=== PATIENT | male | born 1945 | race African-American/Black ===

== ENCOUNTER 2017-12-15 15:07 | Inpatient (IN) ==
[2017-12-15] MEDS ORDERED: ALBUTEROL/IPRATROPIUM 3 ML NEB RESP TX STA (16:36)
[2017-12-15] MEDS ORDERED: AZITHROMYCIN 250 MG TABLET PO STA (17:15)
[2017-12-15] MEDS ORDERED: cefTRIAXone 2,000 MG in SODIUM CHLORIDE 0.9% 100 ML IV STA (17:15)
[2017-12-15 17:17] LABS: Basophils % 0.2 % (0.0-0.8); Eosinophils # 0.2 10*3/uL (0.0-0.87); Eosinophils % 2.8 % (0.00-10.9); Hematocrit 41.2 VOL% (42.0-52.0); Hemoglobin 13.5 GM/DL (14.0-18.0); Immature Granulocytes % 0.4 %; Immature Granulocytes Absolute 0.02 #; Lymphocytes # 1.3 10*3/uL (1.4-4.0); Lymphocytes % 23.1 % (21.2-54.2); Mean Corpuscular HGB Conc 32.8 GM/DL (32-36); Mean Corpuscular Hemoglobin 29 PG (27-34); Mean Corpuscular Volume 88.8 FL (87-102); Mean Platelet Volume 11.3 FL (9.6-12.0); Monocytes # 0.9 10*3/uL (0.11-0.8); Monocytes % 15.2 % (1.7-12.7); Neutrophils # 3.3 10*3/uL (1.4-7.4); Neutrophils % 58.3 % (38.7-73.9); Platelet Count 141 T/CUMM (130-400); Red Blood Count 4.64 MC/CUMM (3.8-5.5); Red Cell Distribution Width 14.6 % (9.3-17.3); White Blood Count 5.7 T/CUMM (4-12)
[2017-12-15 17:36] LABS: Albumin 3.8 G/DL (3.4-5.0); Bilirubin,Total 0.7 MG/DL (0.2-1.0); Calcium 9.1 MG/DL (8.5-10.1); Lactic Acid 0.6 MMOL/L (0.4-2.0); Osmolality,Calculated 280.3 MOS/KG (273-304); Total Protein 7.8 G/DL (6.4-8.3)
[2017-12-15] MEDS ORDERED: AZITHROMYCIN 250 MG TABLET ONE (17:54)
[2017-12-15] MEDS ORDERED: cefTRIAXone 1,000 MG VIAL ONE (17:54)
[2017-12-15] MEDS ORDERED: OSELTAMIVIR 75 MG CAPSULE PO STA (18:55)
[2017-12-15] MEDS ORDERED: OSELTAMIVIR 75 MG CAPSULE ONE (18:58)
[2017-12-15] MEDS ORDERED: ALBUTEROL 2.5 MG/3 ML NEB RESP TX PRN (19:35)
[2017-12-15] MEDS ORDERED: ONDANSETRON 4 MG/2 ML VIAL IV PRN (19:47)
[2017-12-15] MEDS ORDERED: SODIUM CHLORIDE 0.9% 1,000 ML IV SCH (20:00)
[2017-12-15] MEDS ORDERED: hydrALAZINE 20 MG/1 ML VIAL IV PRN (20:02)
[2017-12-15] MEDS ORDERED: OSELTAMIVIR 75 MG CAPSULE PO SCH (21:00)
[2017-12-15] MEDS: DILTIAZEM 90 MG TABLET PO SCH (22:18)
[2017-12-15] MEDS: ENOXAPARIN 40 MG/0.4 ML SYRINGE SUBCUT SCH (22:18)
[2017-12-16] MEDS: ALBUTEROL/IPRATROPIUM 3 ML NEB RESP TX SCH ×4 (00:13→19:58)
[2017-12-16] MEDS: ACETAMINOPHEN 325 MG TABLET PO PRN ×2 (01:05→11:24)
[2017-12-16] MEDS ORDERED: KETOROLAC 15 MG/1 ML VIAL IV ONE (03:25)
[2017-12-16] MEDS ORDERED: KETOROLAC 30 MG/1 ML VIAL ONE (03:26)
[2017-12-16] MEDS ORDERED: FUROSEMIDE 40 MG/4 ML VIAL IM ONE (03:32)
[2017-12-16] MEDS ORDERED: FUROSEMIDE 40 MG/4 ML VIAL ONE (03:32)
[2017-12-16] MEDS ORDERED: FUROSEMIDE 40 MG/4 ML VIAL IV ONE ×2 (03:33→06:00)
[2017-12-16 03:36] LABS: ABG Base Excess 4.2 MMOL/L (-2.5-2.5); ABG HCO3 28.1 MMOL/L (20-26); ABG Oxygen Saturation 95.1 % (95-100); ABG PH 7.244 (7.35-7.45); ABG PO2 87.2 MM HG (80-95); ABG TCO2 31.5 MMOL/L (23-27); Allen Test Positive
[2017-12-16 03:39] LABS: ABG PCO2 81.2 MM HG (35-48)
[2017-12-16 04:10] LABS: Basophils % 0.3 % (0.0-0.8); Eosinophils # 0.1 10*3/uL (0.0-0.87); Eosinophils % 1.6 % (0.00-10.9); Hematocrit 39.4 VOL% (42.0-52.0); Immature Granulocytes % 0.6 %; Immature Granulocytes Absolute 0.04 #; Lymphocytes # 2.1 10*3/uL (1.4-4.0); Lymphocytes % 33.6 % (21.2-54.2); Mean Corpuscular Hemoglobin 29 PG (27-34); Mean Corpuscular Volume 89.1 FL (87-102); Mean Platelet Volume 11.6 FL (9.6-12.0); Monocytes # 0.9 10*3/uL (0.11-0.8); Monocytes % 14.4 % (1.7-12.7); Neutrophils # 3.1 10*3/uL (1.4-7.4); Neutrophils % 49.5 % (38.7-73.9); Platelet Count 127 T/CUMM (130-400); Red Blood Count 4.42 MC/CUMM (3.8-5.5); Red Cell Distribution Width 14.7 % (9.3-17.3); White Blood Count 6.3 T/CUMM (4-12)
[2017-12-16 04:50] LABS: Calcium 8.8 MG/DL (8.5-10.1); Osmolality,Calculated 282.3 MOS/KG (273-304); Potassium 4.4 MMOL/L (3.5-5.1)
[2017-12-16 06:04] LABS: Troponin I Only 0.356 NG/ML (0.00-0.045)
[2017-12-16 06:09] LABS: Eosinophils 2 % (0-10); Hypochromasia 1+; Lymphocytes 35 % (20-55); Platelet Estimate Adequate; Segmented Neutrophils 46 % (50-85); Total Cells Counted 100
[2017-12-16 06:24] LABS: ABG Base Excess 4.2 MMOL/L (-2.5-2.5); ABG HCO3 28.2 MMOL/L (20-26); ABG Oxygen Saturation 98.2 % (95-100); ABG PH 7.244 (7.35-7.45); ABG TCO2 31.4 MMOL/L (23-27); Allen Test Positive; Pt O2 Delivery Device BIPAP
[2017-12-16 06:27] LABS: ABG PCO2 81.2 MM HG (35-48)
[2017-12-16] MEDS: OSELTAMIVIR 75 MG CAPSULE PO SCH ×3 (07:28→20:44)
[2017-12-16] MEDS: ATORVASTATIN 20 MG TABLET PO SCH (08:43)
[2017-12-16] MEDS: DILTIAZEM 90 MG TABLET PO SCH (08:43)
[2017-12-16] MEDS: ASPIRIN EC 81 MG TABLET PO SCH (08:43)
[2017-12-16] MEDS: methylPREDNISolone SOD SUC 40 MG/1 ML VIAL IV SCH ×3 (08:44→20:41)
[2017-12-16] MEDS ORDERED: cloNIDine 0.1 MG TABLET PO PRN (09:17)
[2017-12-16] MEDS: cefTRIAXone 1,000 MG in SYRINGE 1 EACH IV SCH (16:53)
[2017-12-16] MEDS ORDERED: AZITHROMYCIN INJ 500 MG in SODIUM CHLORIDE 0.9% 250 ML IV SCH (17:30)
[2017-12-16] MEDS: ENOXAPARIN 40 MG/0.4 ML SYRINGE SUBCUT SCH (20:43)
[2017-12-17] MEDS: ALBUTEROL/IPRATROPIUM 3 ML NEB RESP TX SCH ×4 (01:43→20:01)
[2017-12-17] MEDS: methylPREDNISolone SOD SUC 40 MG/1 ML VIAL IV SCH ×4 (01:51→20:57)
[2017-12-17 03:03] LABS: ABG Base Excess 5.3 MMOL/L (-2.5-2.5); ABG HCO3 29.2 MMOL/L (20-26); ABG Oxygen Saturation 97.8 % (95-100); ABG PH 7.241 (7.35-7.45); ABG TCO2 32.8 MMOL/L (23-27)
[2017-12-17 03:05] LABS: ABG PCO2 85.9 MM HG (35-48)
[2017-12-17] MEDS: ASPIRIN EC 81 MG TABLET PO SCH (08:24)
[2017-12-17] MEDS: ATORVASTATIN 20 MG TABLET PO SCH (08:24)
[2017-12-17] MEDS: OSELTAMIVIR 75 MG CAPSULE PO SCH ×2 (08:24→20:57)
[2017-12-17] MEDS: cefTRIAXone 1,000 MG in SYRINGE 1 EACH IV SCH (16:35)
[2017-12-17] MEDS: ENOXAPARIN 40 MG/0.4 ML SYRINGE SUBCUT SCH (20:57)
[2017-12-18] MEDS: ALBUTEROL/IPRATROPIUM 3 ML NEB RESP TX SCH ×4 (02:21→20:28)
[2017-12-18] MEDS: methylPREDNISolone SOD SUC 40 MG/1 ML VIAL IV SCH ×3 (04:27→22:08)
[2017-12-18] MEDS ORDERED: METOPROLOL TARTRATE 25 MG TABLET PO SCH (09:30)
[2017-12-18] MEDS: LOSARTAN 25 MG TABLET PO SCH ×2 (09:46→22:08)
[2017-12-18] MEDS: ASPIRIN EC 81 MG TABLET PO SCH (09:46)
[2017-12-18] MEDS: ATORVASTATIN 20 MG TABLET PO SCH (09:46)
[2017-12-18] MEDS: OSELTAMIVIR 75 MG CAPSULE PO SCH ×2 (09:46→22:07)
[2017-12-18] MEDS: cefTRIAXone 1,000 MG in SYRINGE 1 EACH IV SCH (17:16)
[2017-12-18] MEDS: ENOXAPARIN 40 MG/0.4 ML SYRINGE SUBCUT SCH (22:07)
[2017-12-19] MEDS: ALBUTEROL/IPRATROPIUM 3 ML NEB RESP TX SCH ×3 (02:06→13:27)
[2017-12-19 04:03] LABS: Allen Test Positive
[2017-12-19 04:04] LABS: ABG Base Excess 9.8 MMOL/L (-2.5-2.5); ABG HCO3 33.5 MMOL/L (20-26); ABG Oxygen Saturation 94.9 % (95-100); ABG PCO2 68.4 MM HG (35-48); ABG PH 7.362 (7.35-7.45); ABG PO2 78.9 MM HG (80-95); ABG TCO2 33.5 MMOL/L (23-27)
[2017-12-19 07:55] LABS: Calcium 10.7 MG/DL (8.5-10.1); Osmolality,Calculated 287.1 MOS/KG (273-304); Potassium 5.1 MMOL/L (3.5-5.1); Troponin I Only 0.104 NG/ML (0.00-0.045)
[2017-12-19] MEDS: methylPREDNISolone SOD SUC 40 MG/1 ML VIAL IV SCH (09:01)
[2017-12-19] MEDS: OSELTAMIVIR 75 MG CAPSULE PO SCH (09:02)
[2017-12-19] MEDS: ASPIRIN EC 81 MG TABLET PO SCH (09:02)
[2017-12-19] MEDS: LOSARTAN 25 MG TABLET PO SCH (09:02)
[2017-12-19] MEDS: ATORVASTATIN 20 MG TABLET PO SCH (09:04)
[2017-12-19] MEDS ORDERED: BUDESONIDE/FORMOTEROL 160-4.5 INHALER 6 GM INH SCH (09:30)
[2017-12-19 12:55] VITALS: BP 172/86
== END 2017-12-19 14:53 | disposition home or self-care (01) | DRG 871 ==
LOC: N.ED 15:07 → N.EDINP 19:12 → SUATTDRO 19:12 → N.5E 20:53 → N.ICU 12-16 05:13 → N.5E 12-18 10:53
PROVIDERS: ADMIT Internal Medicine; ATTEND Internal Medicine

== ENCOUNTER 2021-03-24 12:44 | Inpatient (IN) ==
[2021-03-24 13:46] LABS: Basophils % 0.3 % (0.0-0.8); Eosinophils # 0.2 10*3/uL (0.0-0.87); Eosinophils % 3.1 % (0.00-10.9); Hematocrit 43.7 VOL% (42.0-52.0); Hemoglobin 13.6 GM/DL (14.0-18.0); Immature Granulocytes % 0.9 %; Immature Granulocytes Absolute 0.05 #; Lymphocytes # 1.1 10*3/uL (1.4-4.0); Lymphocytes % 17.9 % (21.2-54.2); Mean Corpuscular HGB Conc 31.1 GM/DL (32-36); Mean Corpuscular Volume 93.2 FL (87-102); Mean Platelet Volume 11.5 FL (9.6-12.0); Monocytes % 12.6 % (1.7-12.7); NRBC # 0.03 10*3/uL; Neutrophils % 65.2 % (38.7-73.9); Platelet Count 143 T/CUMM (130-400); Red Blood Count 4.69 MC/CUMM (3.8-5.5); Red Cell Distribution Width 16.8 % (9.3-17.3); White Blood Count 5.9 T/CUMM (4-12)
[2021-03-24 13:55] LABS: Bilirubin,Urine Negative (Negative); Blood, Urine Negative (Negative); Glucose,Urine (UA) Negative (Negative); Hyaline Casts,Urine 29 /LPF (0-3); Ketones,Urine Negative (Negative); Mucus,Urine Occasional /LPF (Occasional); Nitrite,Urine Negative (Negative); Protein,Urine Negative; RBC,Urine 4 /HPF (0-4); Squamous Epithelial Cell,Urine Occasional /HPF (0-10); Urine Appearance CLEAR (Clear); Urine Color Yellow (Yellow); Urine Specific Gravity 1.013 (1.001-1.035)
[2021-03-24 14:22] LABS: Alanine Aminotransferase 47 U/L (16-61); Albumin 3.2 G/DL (3.4-5.0); Alkaline Phosphatase 53 U/L (45-117); Aspartate Amino Transferase 38 U/L (0-37); Blood Urea Nitrogen 40 MG/DL (7-18); Calcium 8.9 MG/DL (8.5-10.1); Carbon Dioxide 31 MMOL/L (21-32); Estimated Glom Filtration Rate 59 ML/MIN; Glucose 114 MG/DL (74-106); Osmolality,Calculated 285.7 MOS/KG (273-304); Potassium 3.7 MMOL/L (3.5-5.1); Sodium 138 MMOL/L (136-145)
[2021-03-24] MEDS ORDERED: SODIUM CHLORIDE 0.9% 3,350 ML IV ONE (14:37)
[2021-03-24 14:42] LABS: Eosinophils 2 % (0-10); Lymphocytes 12 % (20-55); Platelet Estimate Adequate; Segmented Neutrophils 73 % (50-85); Total Cells Counted 100
[2021-03-24] MEDS ORDERED: VANCOMYCIN INJ 1,750 MG in SODIUM CHLORIDE 0.9% 250 ML IV SCH (15:00)
[2021-03-24] MEDS ORDERED: ALUMINUM/MAGNES/SIMETH MAX STR 30 ML UDCUP PO PRN (15:13)
[2021-03-24] MEDS ORDERED: ACETAMINOPHEN 325 MG TABLET PO PRN (15:13)
[2021-03-24] MEDS ORDERED: VANCOMYCIN INJ 1,750 MG in SODIUM CHLORIDE 0.9% 500 ML IV SCH (15:30)
[2021-03-24 16:01] LABS: ABG Base Excess 3.8 MMOL/L (-2.5-2.5); ABG HCO3 27.7 MMOL/L (20-26); ABG Oxygen Saturation 94.9 % (95-100); ABG PCO2 67.7 MM HG (35-48); ABG PH 7.296 (7.35-7.45); ABG PO2 84.3 MM HG (80-95); Allen Test Positive
[2021-03-24 16:10] LABS: Troponin I 0.042 NG/ML (0.00-0.045)
[2021-03-24 16:12] LABS: Risk Ratio 4.87; Thyroid Stimulating Hormone 1.87 uIU/ml (0.358-3.74)
[2021-03-24] MEDS: SODIUM CHLORIDE 0.9% 1,000 ML IV SCH (17:34)
[2021-03-24] MEDS: ENOXAPARIN 40 MG/0.4 ML SYRINGE SUBCUT SCH (17:41)
[2021-03-24] MEDS: ALBUTEROL/IPRATROPIUM 3 ML NEB RESP TX SCH (19:07)
[2021-03-24] MEDS ORDERED: LOSARTAN 25 MG TABLET PO SCH (21:00)
[2021-03-24] MEDS: ATORVASTATIN 20 MG TABLET PO SCH (21:02)
[2021-03-24] MEDS: BUDESONIDE/FORMOTEROL 160-4.5 INHALER 6 GM INH SCH (21:03)
[2021-03-24] MEDS: PIPERACILLIN/TAZOBACTAM 3,375 MG in SODIUM CHLORIDE 0.9% 100 ML IV SCH (21:03)
[2021-03-25] MEDS: ALBUTEROL/IPRATROPIUM 3 ML NEB RESP TX SCH ×4 (00:06→20:48)
[2021-03-25] MEDS: PIPERACILLIN/TAZOBACTAM 3,375 MG in SODIUM CHLORIDE 0.9% 100 ML IV SCH (04:06)
[2021-03-25 06:26] LABS: Basophils % 0.2 % (0.0-0.8); Eosinophils # 0.2 10*3/uL (0.0-0.87); Eosinophils % 3.5 % (0.00-10.9); Hemoglobin 13.7 GM/DL (14.0-18.0); Immature Granulocytes % 0.9 %; Immature Granulocytes Absolute 0.05 #; Lymphocytes % 18.7 % (21.2-54.2); Mean Corpuscular HGB Conc 30.4 GM/DL (32-36); Mean Corpuscular Volume 95.1 FL (87-102); Mean Platelet Volume 11.2 FL (9.6-12.0); Monocytes % 9.2 % (1.7-12.7); NRBC # 0.03 10*3/uL; Neutrophils % 67.5 % (38.7-73.9); Platelet Count 143 T/CUMM (130-400); Red Blood Count 4.73 MC/CUMM (3.8-5.5); Red Cell Distribution Width 16.6 % (9.3-17.3); White Blood Count 5.5 T/CUMM (4-12)
[2021-03-25 06:42] LABS: Calcium 8.7 MG/DL (8.5-10.1); Osmolality,Calculated 290.1 MOS/KG (273-304)
[2021-03-25 06:44] LABS: Platelet Estimate Adequate
[2021-03-25] MEDS: BUDESONIDE/FORMOTEROL 160-4.5 INHALER 6 GM INH SCH ×2 (08:23→20:48)
[2021-03-25] MEDS: ASPIRIN EC 81 MG TABLET PO SCH (08:24)
[2021-03-25] MEDS: cefTRIAXone 1,000 MG in SODIUM CHLORIDE 0.9% 100 ML IV SCH (09:38)
[2021-03-25] MEDS: AZITHROMYCIN 250 MG TABLET PO SCH (09:39)
[2021-03-25] MEDS: methylPREDNISolone SOD SUC 40 MG/1 ML VIAL IV SCH ×2 (09:57→17:00)
[2021-03-25] MEDS ORDERED: VANCOMYCIN INJ 1,500 MG in SODIUM CHLORIDE 0.9% 500 ML IV SCH (10:00)
[2021-03-25] MEDS: ENOXAPARIN 40 MG/0.4 ML SYRINGE SUBCUT SCH (17:23)
[2021-03-25] MEDS: ATORVASTATIN 20 MG TABLET PO SCH (20:47)
[2021-03-26] MEDS: methylPREDNISolone SOD SUC 40 MG/1 ML VIAL IV SCH ×3 (01:40→17:51)
[2021-03-26] MEDS: ALBUTEROL/IPRATROPIUM 3 ML NEB RESP TX SCH ×4 (01:50→20:05)
[2021-03-26] MEDS: DOCUSATE SODIUM 100 MG CAPSULE PO PRN ×2 (09:32→20:48)
[2021-03-26] MEDS: AZITHROMYCIN 250 MG TABLET PO SCH (09:32)
[2021-03-26] MEDS: ASPIRIN EC 81 MG TABLET PO SCH (09:32)
[2021-03-26] MEDS: cefTRIAXone 1,000 MG in SODIUM CHLORIDE 0.9% 100 ML IV SCH (09:38)
[2021-03-26] MEDS: BUDESONIDE/FORMOTEROL 160-4.5 INHALER 6 GM INH SCH ×2 (09:39→20:48)
[2021-03-26] MEDS: SODIUM CHLORIDE 0.9% 1,000 ML IV SCH (10:51)
[2021-03-26] MEDS: ENOXAPARIN 40 MG/0.4 ML SYRINGE SUBCUT SCH (17:51)
[2021-03-26] MEDS: ATORVASTATIN 20 MG TABLET PO SCH (20:48)
[2021-03-27] MEDS: ALBUTEROL/IPRATROPIUM 3 ML NEB RESP TX SCH ×4 (01:45→20:55)
[2021-03-27] MEDS: methylPREDNISolone SOD SUC 40 MG/1 ML VIAL IV SCH ×3 (02:05→16:57)
[2021-03-27 07:17] LABS: Basophils % 0.2 % (0.0-0.8); Eosinophils % 0.2 % (0.00-10.9); Hematocrit 46.4 VOL% (42.0-52.0); Immature Granulocytes % 0.7 %; Immature Granulocytes Absolute 0.04 #; Lymphocytes # 0.7 10*3/uL (1.4-4.0); Lymphocytes % 13.5 % (21.2-54.2); Mean Corpuscular Volume 96.7 FL (87-102); Mean Platelet Volume 11.7 FL (9.6-12.0); Monocytes % 6.6 % (1.7-12.7); NRBC # 0.02 10*3/uL; Neutrophils % 78.8 % (38.7-73.9); Platelet Count 154 T/CUMM (130-400); Red Cell Distribution Width 16.9 % (9.3-17.3); White Blood Count 5.5 T/CUMM (4-12)
[2021-03-27 07:19] LABS: Hemoglobin 13.9 GM/DL (14.0-18.0)
[2021-03-27 07:25] LABS: Calcium 9.1 MG/DL (8.5-10.1)
[2021-03-27 07:45] LABS: Osmolality,Calculated 296.6 MOS/KG (273-304); Potassium 4.6 MMOL/L (3.5-5.1)
[2021-03-27] MEDS: ASPIRIN EC 81 MG TABLET PO SCH (10:00)
[2021-03-27] MEDS: cefTRIAXone 1,000 MG in SODIUM CHLORIDE 0.9% 100 ML IV SCH (10:00)
[2021-03-27] MEDS: AZITHROMYCIN 250 MG TABLET PO SCH (10:01)
[2021-03-27] MEDS: BUDESONIDE/FORMOTEROL 160-4.5 INHALER 6 GM INH SCH ×2 (10:01→20:50)
[2021-03-27] MEDS: hydrALAZINE 20 MG/1 ML VIAL IV PRN ×2 (10:44→16:57)
[2021-03-27] MEDS: ENOXAPARIN 40 MG/0.4 ML SYRINGE SUBCUT SCH (17:25)
[2021-03-27] MEDS: ATORVASTATIN 20 MG TABLET PO SCH (20:50)
[2021-03-28] MEDS: hydrALAZINE 20 MG/1 ML VIAL IV PRN ×2 (00:02→08:48)
[2021-03-28] MEDS: ALBUTEROL/IPRATROPIUM 3 ML NEB RESP TX SCH ×3 (00:37→13:06)
[2021-03-28] MEDS: methylPREDNISolone SOD SUC 40 MG/1 ML VIAL IV SCH ×2 (00:40→08:48)
[2021-03-28] MEDS: cefTRIAXone 1,000 MG in SODIUM CHLORIDE 0.9% 100 ML IV SCH (08:47)
[2021-03-28] MEDS: AZITHROMYCIN 250 MG TABLET PO SCH (08:49)
[2021-03-28] MEDS: ASPIRIN EC 81 MG TABLET PO SCH (08:49)
[2021-03-28] MEDS: BUDESONIDE/FORMOTEROL 160-4.5 INHALER 6 GM INH SCH (09:57)
[2021-03-28 12:13] VITALS: BP 158/86
== END 2021-03-28 15:35 | disposition home or self-care (01) | DRG 190 ==
LOC: N.ED 12:44 → N.EDINP 15:24 → SUATTDRO 15:24 → N.EDINP 17:01 → N.5E 17:18
PROVIDERS: ADMIT Internal Medicine; ATTEND Student in an Organized Health Care Education/Training Program